=== PATIENT | female | born 1940 | race African-American/Black ===

== ENCOUNTER 2018-06-04 13:07 | Inpatient (IN) | payer OTHER ==
[~2018-06-04] VITALS: Ht 165.1 cm; Wt 67.0 kg
[2018-06-04 13:28] VITALS: Ht 165.1 cm; Wt 67.0 kg
[2018-06-04 16:28] LABS: BASOPHIL % 0.4 % (0-2); PLATELET COUNT 191 x10^3mcL (130-400); RED CELL DISTRIBUTION WIDTH 13.7 % (11.5-14.5)
[2018-06-04 16:44] LABS: ALKALINE PHOSPHATASE 172 U/L (46-116); ALT/SGPT 63 U/L (14-59); AST/SGOT 68 U/L (15-37); BILIRUBIN TOTAL 0.72 mg/dL (0.20-1.00); CALCIUM 12.1 mg/dL (8.5-10.1); CARBON DIOXIDE 27.4 mmol/L (21-32); CHLORIDE SERUM 103 mmol/L (98-107); CREATININE SERUM 1.3 mg/dL (0.6-1.0); FREE T4 1.08 ng/dL (0.76-1.46); GLUCOSE SERUM 117 mg/dL (74-106); POTASSIUM SERUM 3.2 mmol/L (3.5-5.1); SODIUM SERUM 142 mmol/L (136-145); TOTAL PROTEIN, SERUM 7.8 g/dL (6.4-8.2)
[2018-06-04 17:13] LABS: microscopic required? NO
[2018-06-04 17:26] LABS: UA SPECIFIC GRAVITY 1.025 (1.005-1.035); urine erythrocyte NEGATIVE (NEGATIVE)
[2018-06-04 18:12] VITALS: BP 130/82
[2018-06-04 19:20] VITALS: BP 119/82
[2018-06-04 19:36] LABS: CHOLESTEROL/HDL RATIO 5.1
[2018-06-05] VITALS (7 sets, daily range): BP systolic 92–132; BP diastolic 41–79
[2018-06-05 06:22] LABS: BASOPHIL % 0.2 % (0-2); PLATELET COUNT 175 x10^3mcL (130-400); RED CELL DISTRIBUTION WIDTH 13.4 % (11.5-14.5)
[2018-06-05 06:25] LABS: CALCIUM 11.5 mg/dL (8.5-10.1); CARBON DIOXIDE 26.5 mmol/L (21-32); CHLORIDE SERUM 108 mmol/L (98-107); GLUCOSE SERUM 122 mg/dL (74-106); MAGNESIUM 2.1 mg/dL (1.8-2.4); PHOSPHOROUS 3.3 mg/dL (2.5-4.9); POTASSIUM SERUM 3.2 mmol/L (3.5-5.1); SODIUM SERUM 148 mmol/L (136-145)
[2018-06-06 06:28] VITALS: BP 133/82
[2018-06-06 06:28] LABS: BASOPHIL % 0.2 % (0-2); PLATELET COUNT 180 x10^3mcL (130-400); RED CELL DISTRIBUTION WIDTH 13.9 % (11.5-14.5)
[2018-06-06 07:52] LABS: ALKALINE PHOSPHATASE 148 U/L (46-116); ALT/SGPT 60 U/L (14-59); AST/SGOT 55 U/L (15-37); CALCIUM 11.1 mg/dL (8.5-10.1); CARBON DIOXIDE 28.5 mmol/L (21-32); CHLORIDE SERUM 115 mmol/L (98-107); GLUCOSE SERUM 139 mg/dL (74-106); PHOSPHOROUS 2.3 mg/dL (2.5-4.9); POTASSIUM SERUM 4.1 mmol/L (3.5-5.1); SODIUM SERUM 154 mmol/L (136-145); TOTAL PROTEIN, SERUM 6.9 g/dL (6.4-8.2)
[2018-06-06 07:56] LABS: ALBUMIN 2.5 g/dL (3.4-5.0)
[2018-06-06 08:34] VITALS: BP 137/88
[2018-06-06 16:09] VITALS: BP 124/68
[2018-06-06 19:45] VITALS: BP 134/75
[2018-06-06 23:23] VITALS: BP 111/61
[2018-06-07 03:21] VITALS: BP 119/69
[2018-06-07 05:52] LABS: BASOPHIL % 0.1 % (0-2); PLATELET COUNT 160 x10^3mcL (130-400); RED CELL DISTRIBUTION WIDTH 13.6 % (11.5-14.5)
[2018-06-07 06:29] LABS: ALKALINE PHOSPHATASE 119 U/L (46-116); ALT/SGPT 41 U/L (14-59); AST/SGOT 44 U/L (15-37); BILIRUBIN TOTAL 0.4 mg/dL (0.20-1.00); CALCIUM 9.8 mg/dL (8.5-10.1); CARBON DIOXIDE 23.3 mmol/L (21-32); CHLORIDE SERUM 123 mmol/L (98-107); CREATININE SERUM 0.8 mg/dL (0.6-1.0); GLUCOSE SERUM 132 mg/dL (74-106); MAGNESIUM 1.8 mg/dL (1.8-2.4); PHOSPHOROUS 1.6 mg/dL (2.5-4.9); POTASSIUM SERUM 3.7 mmol/L (3.5-5.1); SODIUM SERUM 157 mmol/L (136-145)
[2018-06-07 06:36] LABS: ALBUMIN 2.2 g/dL (3.4-5.0)
[2018-06-07 07:35] VITALS: BP 145/82
[2018-06-07 14:36] VITALS: BP 123/71
[2018-06-07 17:30] VITALS: BP 115/75
[2018-06-07 21:36] VITALS: BP 147/88
[2018-06-08] VITALS (7 sets, daily range): BP systolic 118–134; BP diastolic 79–88
[2018-06-08 06:41] LABS: CARBON DIOXIDE 25.9 mmol/L (21-32); CHLORIDE SERUM 123 mmol/L (98-107); CREATININE SERUM 0.9 mg/dL (0.6-1.0); GLUCOSE SERUM 154 mg/dL (74-106)
[2018-06-08 07:50] LABS: SODIUM SERUM 160 mmol/L (136-145)
[2018-06-08 07:51] LABS: POTASSIUM SERUM 2.8 mmol/L (3.5-5.1)
[2018-06-08 07:54] LABS: BASOPHIL % 0.1 % (0-2); PLATELET COUNT 165 x10^3mcL (130-400); RED CELL DISTRIBUTION WIDTH 14.1 % (11.5-14.5)
[2018-06-08 13:19] LABS: PTH INTACT 19 pg/mL (15-65)
== END 2018-06-08 22:14 | disposition home or self-care (01) | DRG 542 ==
LOC: ED 13:07 → DU 17:13 → IC 17:13 → DU 17:58 → IC 06-06 11:20 → DU 06-06 11:59 → IC 06-06 12:02 → DU 06-06 12:13 → IC 06-06 12:15 → DU 06-07 17:25 → IC 06-07 17:27 → DU 06-07 18:23
PROVIDERS: Emergency Medicine; ADMIT Internal Medicine
DX: M84.48XA Pathological fracture, other site, initial encounter for fracture (principal); N17.0 Acute kidney failure with tubular necrosis; E43 Unspecified severe protein-calorie malnutrition; C79.51 Secondary malignant neoplasm of bone; I82.432 Acute embolism and thrombosis of left popliteal vein; I82.442 Acute embolism and thrombosis of left tibial vein; E87.0 Hyperosmolality and hypernatremia; D68.69 Other thrombophilia; I48.0 Paroxysmal atrial fibrillation; C50.912 Malignant neoplasm of unspecified site of left female breast; E11.65 Type 2 diabetes mellitus with hyperglycemia; E87.6 Hypokalemia; I34.0 Nonrheumatic mitral (valve) insufficiency; R13.10 Dysphagia, unspecified; E86.0 Dehydration; E78.5 Hyperlipidemia, unspecified; K80.20 Calculus of gallbladder without cholecystitis without obstruction; E83.52 Hypercalcemia; Z66 Do not resuscitate; Z68.25 Body mass index [BMI] 25.0-25.9, adult
CPT/HCPCS: 76641; 83880; 84439; 87804; 92526-GN; 92610; 92610-GN; J0282; J1650; J1885; J1940; J2001; J2060; J2270; J2405; J2430; J2930; J3010; J3480; J3490; J7030; J7042; J7050; J7070; J7620; Q0092; Q9967